=== PATIENT | male | born 1985 | race Caucasian/White ===

== ENCOUNTER 2020-06-11 11:42 | Emergency (ER) | payer SELFPAY ==
[~2020-06-11] VITALS: Ht 175.3 cm; Wt 79.5 kg
[2020-06-11 11:47] VITALS: BP 110/86; Ht 175.3 cm; Wt 79.5 kg
[2020-06-11 12:40] LABS: CALC OSMOLALITY 277 mosm/kg (275-300); CALCIUM 9.5 mg/dL (8.5-10.1); CARBON DIOXIDE 26.7 mmol/L (21.0-32.0); CHLORIDE - SERUM 102 mmol/L (98-107); GLUCOSE 103 mg/dL (74-106); SODIUM 138 mmol/L (136-145); UREA NITROGEN 19 mg/dL (7-18); eGFR NON AFRICAN AMERICAN > 90 mL/min (90-120)
[2020-06-11 12:47] LABS: HEMATOCRIT 49.4 % (42.0-54.0); HEMOGLOBIN 16.7 g/dL (13.5-17.5); LYMPHOCYTE ABS# 1.78 10x3/uL (1.32-3.57); MCH 31.5 pg (26.0-34.0); MCHC 33.8 g/dL (31.0-37.0); MEAN PLATELET VOLUME 9.6 fL (7.4-10.4); NEUTROPHIL ABS# 17.86 10x3/uL (1.78-5.38); PLATELET COUNT 179 10x3/uL (130-400); RBC 5.31 10x6/uL (4.20-6.10); RDW 12.2 % (11.5-14.5); WBC 21.3 10x3/uL (4.8-10.8)
[2020-06-11 12:48] LABS: ALKALINE PHOSPHATASE 87 U/L (30-120); ALT (SGPT) 97 U/L (10-68); AMYLASE - SERUM 45 U/L (25-115); BILIRUBIN - TOTAL 1.93 mg/dL (0.2-1.3); LIPASE 51 U/L (73-393); PROTEIN - SERUM 7.6 g/dL (6.4-8.2)
[2020-06-11 12:49] LABS: TROPONIN-I < 0.017 ng/mL (0.000-0.060)
[2020-06-11 12:51] LABS: INR 1.12 (0.85-1.17); PROTIME 13.4 SECONDS (11.6-15.0)
[2020-06-11 13:41] LABS: MAGNESIUM - SERUM 2.1 mg/dL (1.8-2.4)
[2020-06-11 14:07] LABS: LYMPHOCYTES 21 % (15-50); MONOCYTES 9 % (2-11); NEUTROPHILS 70 % (40-80); PLATELET ESTIMATE NORMAL
[2020-06-11 14:08] LABS: PLATELET MORPHOLOGY PLT CLUMPS PRESENT
--- NOTE | 2020-06-11 16:44 | NUR ---
WENT OVER TO GET PATIENT FOR EGD. PATIENT STATES HE DOESN'T FEEL GOOD ABOUT IT AND REFUSES THE PROCEDURE. EXPLAINED PROCEDURE TO HIM AND THAT IT WOULDN'T TAKE OVER 1/2 HOUR. STATES HE NEEDS TO GO AND HAS THINGS TO DO. REFUSES TO COME TO GI ROOM. MASON,PATIENTS NURSE, COMES BACK TO ROOM. HE STATES HE REFUSES THE PROCEDURE AND WANTS TO LEAVE. STATES HE IS GONNA RIP HIS IV OUT IF SOMEONE DOESN'T GET IT OUT OF HIM. NURSE ADVISED HIM TO GIVE HER A MINUTE AND SHE WOULD TAKE IT OUT AND HE COULD SIGN AMA PAPERS.
== END 2020-06-11 23:33 | disposition other institution (70) ==
LOC: D.ER 11:42
PROVIDERS: Emergency Medicine
DX: R09.89 Other specified symptoms and signs involving the circulatory and respiratory systems (principal); K92.2 Gastrointestinal hemorrhage, unspecified; F10.10 Alcohol abuse, uncomplicated; Y90.9 Presence of alcohol in blood, level not specified; R10.9 Unspecified abdominal pain